=== PATIENT | female | born 1955 | race Caucasian/White ===

== ENCOUNTER 2017-09-03 12:08 | Day surgery (SDC) | payer BC ==
[2017-09-03] MEDS ORDERED: Lactated Ringers 1,000 ML IV SCH (12:30)
[2017-09-03] MEDS ORDERED: Sodium Chloride 0.9% 10 ML Syringe FLUSH PRN (12:30)
[2017-09-03] MEDS ORDERED: Midazolam 1 MG/ML 2 ML SDV ONE ×2 (13:35)
[2017-09-03] MEDS ORDERED: Propofol 200 MG/20 ML SDV ONE ×2 (13:35)
[2017-09-03] MEDS ORDERED: fentaNYL 100 MCG/2 ML SDV ONE ×2 (13:35)
[2017-09-03] MEDS ORDERED: Lidocaine 2% 5 ML SDV ONE (13:35)
--- NOTE | 2017-09-03 13:37 | PCM.PN ---
- General Info Date of Service: 09/03/17 - Review of Systems Systems Review Comment:: 61-year-old female referred by Tapan Vasquez for EGD and colonoscopy. She has a history of GERD and also a recent change in bowel habits. She is medically stable to proceed today with no recent changes in her health status. Her recent history and physical is reviewed. I have discussed the proposed upper and lower endoscopy with the patient. Risks such as but not limited to bleeding and GI injury discussed. She appears to understand and agrees to proceed. - Patient Data Vitals - Most Recent: Last Vital Signs Temp 98.1 F 09/03/17 12:38 Pulse 100 09/03/17 12:38 Resp 20 09/03/17 12:38 BP 112/58 L 09/03/17 12:38 Pulse Ox 100 09/03/17 12:38 Weight - Most Recent: 82.554 kg Med Orders - Current: Current Medications Lactated Ringer's (Ringers, Lactated) 1,000 mls @ 70 mls/hr IV ASDIRECTED SALVADOR Last Admin: 09/03/17 13:09 Dose: 70 mls/hr Sodium Chloride (Saline Flush) 10 ml FLUSH ASDIRECTED PRN PRN Reason: Keep Vein Open - Problem List Review Problem List Initiated/Reviewed/Updated: Yes - Assessment Assessment:: GERD Change in bowel habits - Plan Plan:: EGD and colonoscopy
--- NOTE | 2017-09-03 14:31 | PCM.OPNOTE ---
- General Post-Op/Procedure Note Date of Surgery/Procedure: 09/03/17 Operative Procedure(s): EGD with Biopsy and Colonoscopy Findings: Small Hiatal Hernia Mild reflux esophagitis at the GE Jct. Moderate Sigmoid Diverticulosis External hemorrhoids Pre Op Diagnosis: GERD. Change in Bowel Habits Post-Op Diagnosis: Reflux esophagitis. Hiatal Hernia. External Hemorrhoids. Diverticulosis Anesthesia Technique: [facility] – [place] Primary Surgeon: Chad Flores Pathology: Biopsies of Duodenum, Gastric antrum, and GE Jct Output, Urine Amount: 0 EBL in mLs: 3 Complications: None Condition: Good Free Text/Narrative:: Intake & Output 09/02/17 09/03/17 09/03/17 22:59 06:59 14:59 Intake Total 1000 Balance 1000
[2017-09-03 16:58] VITALS: BP 120/64
--- NOTE | 2017-09-03 19:08 | OR ---
Date of Procedure: 09/03/2017 PREOPERATIVE DIAGNOSES: Gastroesophageal reflux disease and change in bowel habits. POSTOPERATIVE DIAGNOSES: 1. Hiatal hernia. 2. Reflux esophagitis. 3. Sigmoid diverticulosis. 4. External hemorrhoids. OPERATION PERFORMED: EGD with biopsy and colonoscopy. INDICATIONS FOR SURGERY: This 61-year-old female has a longstanding history of GERD symptoms, which are slowly worsening. She also has been having a change in her bowel habits, and she is referred for EGD and colonoscopy. FINDINGS: On upper endoscopy, the patient has a small hiatal hernia with widening of the GE junction. There is a mild degree of irritation at the GE mucosal junction consistent with acid reflux, but this is confined to the area of the GE junction, and the remainder of the esophagus appears normal. Her stomach otherwise appears normal, and her duodenum does as well. On colonoscopy, the patient has a moderate degree of sigmoid diverticulosis with some angulation, and there is also moderate sized external hemorrhoids, but her colon otherwise appears normal. DESCRIPTION OF PROCEDURE: The patient was taken to the operating room. She was given intravenous sedation, and her throat was topically anesthetized. With the patient in the left lateral decubitus position and with the mouth gag in place, the esophagus was intubated with the Olympus gastroscope. This was carefully advanced down through the esophagus, stomach, and into the duodenum, where examination to the fourth portion was performed. After carefully examining the duodenum, random biopsies of the duodenum were taken because of her history of diarrhea. The scope was withdrawn back up into the stomach, where multiple biopsies of the gastric antrum were taken to rule out H. pylori. Full examination of the stomach including retroflexed examination of the fundus was carried out. The GE junction was then carefully examined, and biopsies were taken here as well. The esophagus was then re-examined as the scope was removed. Attention was then turned to colonoscopy. Digital rectal exam showed no rectal masses. The Olympus colonoscope was inserted into the rectum. Retroflexed examination of the rectal canal was performed. The scope was then carefully advanced through the entire length of the colon until the cecum was reached. Cecal acquisition was confirmed by noting the normal internal cecal anatomy including the appendiceal orifice and the ileocecal valve and also visualizing the light to transilluminate the abdominal wall in the right lower quadrant. After examining the cecum, the scope was slowly withdrawn sequentially re-examining the colonic segments until the entire colon and rectum had been fully examined. The scope was removed, and the patient was taken from the operating room in satisfactory condition. ESTIMATED BLOOD LOSS: 3 mL. COMPLICATIONS: None. PROGNOSIS: Good. ELLI Flores MD /[id number]
== END 2017-09-03 15:55 | disposition home or self-care (01) ==
LOC: LL.SDS 12:08
PROVIDERS: ATTEND Surgery
DX: K44.9 Diaphragmatic hernia without obstruction or gangrene (principal); K64.4 Residual hemorrhoidal skin tags; K57.30 Diverticulosis of large intestine without perforation or abscess without bleeding; B33.20 Viral carditis, unspecified; E78.5 Hyperlipidemia, unspecified; K21.9 Gastro-esophageal reflux disease without esophagitis; I25.2 Old myocardial infarction; I25.10 Atherosclerotic heart disease of native coronary artery without angina pectoris; E03.9 Hypothyroidism, unspecified; E66.9 Obesity, unspecified; Z88.8 Allergy status to other drugs, medicaments and biological substances; Z79.82 Long term (current) use of aspirin; Z79.899 Other long term (current) drug therapy; Z68.33 Body mass index [BMI] 33.0-33.9, adult; F17.210 Nicotine dependence, cigarettes, uncomplicated
CPT/HCPCS: 43239; 45378; J2250; J2704; J3010; J7120

== ENCOUNTER 2021-05-23 07:58 | Day surgery (SDC) | payer MEDICARE, BC ==
[~2021-05-23 07:58] MED LIST: Lactated Ringers 1,000 ML IV SCH; Sodium Chloride 0.9% 10 ML Syringe FLUSH PRN
[2021-05-23] MEDS ORDERED: Midazolam 1 MG/ML 2 ML SDV ONE ×2 (08:39→09:03)
[2021-05-23] MEDS ORDERED: Propofol 200 MG/20 ML SDV ONE ×2 (08:39→09:03)
[2021-05-23] MEDS ORDERED: Glycopyrrolate 0.2 MG/ML SDV ONE (09:03)
[2021-05-23] MEDS ORDERED: Lidocaine 2% 5 ML SDV ONE (09:03)
--- NOTE | 2021-05-23 09:07 | PCM.PN ---
- General Info Date of Service: 05/23/21 - Review of Systems Systems Review Comment:: 65-year-old female with history of GERD as well as change in bowel habits with diarrhea referred for EGD and colonoscopy. Patient's history and physical is reviewed and no significant changes are noted. I have discussed the proposed EGD and colonoscopy with the patient. Her questions were answered and she agrees to proceed. She understands and accepts risks. - Patient Data Vitals - Most Recent: Last Vital Signs Temp 98.3 F 05/23/21 08:30 Pulse 81 05/23/21 08:30 Resp 18 05/23/21 08:30 BP 126/50 L 05/23/21 08:30 Pulse Ox 96 05/23/21 08:30 Weight - Most Recent: 94.801 kg Med Orders - Current: Current Medications Lactated Ringer's (Ringers, Lactated) 1,000 mls @ 125 mls/hr IV ASDIRECTED SALVADOR Last Admin: 05/23/21 08:55 Dose: 125 mls/hr Documented by: Sodium Chloride (Sodium Chloride 0.9% 10 Ml Syringe) 10 ml FLUSH ASDIRECTED PRN PRN Reason: Keep Vein Open Discontinued Medications Midazolam HCl (Midazolam 1 Mg/Ml 2 Ml Sdv) Confirm Administered Dose 2 mg .ROUTE .STK-MED ONE Stop: 05/23/21 08:40 Propofol (Propofol 200 Mg/20 Ml Sdv) Confirm Administered Dose 400 mg .ROUTE .STK-MED ONE Stop: 05/23/21 08:40 Sepsis Event Note - Focused Exam Vital Signs: Vital Signs Temp Pulse Resp BP Pulse Ox 05/23/21 08:30 98.3 F 81 18 126/50 L 96 - Problem List Review Problem List Initiated/Reviewed/Updated: Yes - Assessment Assessment:: GERD Change in bowel habits - Plan Plan:: EGD and colonoscopy
--- NOTE | 2021-05-23 09:51 | PCM.OPNOTE ---
- General Post-Op/Procedure Note Date of Surgery/Procedure: 05/23/21 Operative Procedure(s): EGD with Biopsy and Colonoscopy with Polypectomy and Biopsy Findings: Small hiatal hernia but otherwise normal upper endoscopy Sessile transverse colon polyp and small cecal polyp Small to moderate sized external hemorrhoids Otherwise normal colon Pre Op Diagnosis: GERD. Change in bowel habits Post-Op Diagnosis: Hiatal hernia. Colon polyps. Hemorrhoids Anesthesia Technique: MAC Primary Surgeon: Chad Flores Pathology: Biopsies of duodenum, antrum, esophagus, and colon Colon polyps EBL in mLs: 3 Complications: None Condition: Good
[2021-05-23 10:27] VITALS: BP 131/69; PULSE 84
--- NOTE | 2021-05-23 11:26 | OR ---
Date of Procedure: 05/23/2021 PREOPERATIVE DIAGNOSES: Gastroesophageal reflux disease, change in bowel habits. POSTOPERATIVE DIAGNOSES: Hiatal hernia, colon polyps, external hemorrhoids. OPERATIONS PERFORMED: Esophagogastroduodenoscopy with biopsy and colonoscopy with biopsy and polypectomy. INDICATIONS FOR SURGERY: This 65-year-old female who has been having symptoms of epigastric pain and GERD. She also has noted a recent change in bowel pattern with some loose and irregular bowel movements. FINDINGS: On upper endoscopy, the patient has a small hiatal hernia with mild widening of the GE junction. The structures otherwise appear normal. On colonoscopy, the colon mucosa appears normal without visible signs of inflammation or irregularity. Two polyps were noted during the exam. A 1 cm sessile polyp in the transverse colon and a 5 mm sessile polyp in the cecum. The patient also has small to medium-sized external hemorrhoids. PROCEDURE IN DETAIL: The patient was taken to the operating room. She was given intravenous sedation, and her throat was topically anesthetized. With her in the left lateral decubitus position, the Olympus gastroscope was advanced through a mouth guard into the oral cavity. Under direct visualization, the scope was advanced through the oropharynx and down through the esophagus, stomach, and into the duodenum, where examination to the fourth portion was performed. The duodenum was carefully examined and found to appear normal. Random biopsies of the duodenum were taken because of the patient's history of loose stools. The scope was withdrawn back into the stomach where full examination including retroflexed examination of the fundus was carried out. The gastric mucosal lining appeared normal, but random biopsies of the antrum were taken to rule out H. pylori. The GE junction and esophagus were also carefully examined as the scope was withdrawn. Because of her symptoms of GERD, random biopsies of the distal esophagus were taken. After the exam had been completed, attention was turned to colonoscopy. Digital rectal exam was performed showing no rectal masses. The Olympus colonoscope was inserted into the rectum. Retroflexed examination of the rectal canal was performed. The scope was then carefully advanced under direct visualization through the entire length of the colon until the cecum was reached. Cecal acquisition was confirmed by noting the normal internal cecal anatomy including the ileocecal valve and the area of the appendiceal orifice. The light was also noted to transilluminate the abdominal wall in the right lower quadrant. During advancement of the scope, the above-described sessile polyp in the transverse colon was identified. This was removed with a cautery snare and retrieved into a polyp trap. The small cecal polyp was also removed when visualized, and this was carried out with the cold biopsy forceps. After examining the cecum, the scope was slowly withdrawn sequentially re-examining the colonic segments. During withdrawal of the scope, random biopsies of the right and left colon were taken because of her history of loose stools. After the exam had been completed and with no sign of any complication, the scope was removed, and the patient was taken from the operating room in satisfactory condition. ESTIMATED BLOOD LOSS: 3 mL. COMPLICATIONS: None. PROGNOSIS: Good. ELLI Flores MD /[id number]
== END 2021-05-23 11:18 | disposition home or self-care (01) ==
LOC: LL.SDS 07:58
PROVIDERS: ATTEND Surgery
DX: D12.3 Benign neoplasm of transverse colon (principal); D12.0 Benign neoplasm of cecum; K31.89 Other diseases of stomach and duodenum; K29.50 Unspecified chronic gastritis without bleeding; K64.4 Residual hemorrhoidal skin tags; I25.10 Atherosclerotic heart disease of native coronary artery without angina pectoris; I25.2 Old myocardial infarction; E78.5 Hyperlipidemia, unspecified; J44.9 Chronic obstructive pulmonary disease, unspecified; F41.1 Generalized anxiety disorder; E03.9 Hypothyroidism, unspecified; F41.8 Other specified anxiety disorders; K57.30 Diverticulosis of large intestine without perforation or abscess without bleeding; K21.9 Gastro-esophageal reflux disease without esophagitis
CPT/HCPCS: 00813; 88305; J2250; J2704; J3490; J7120

== ENCOUNTER 2022-03-23 12:39 | Observation (INO) | payer MEDICARE, BC ==
[2022-03-23] MEDS ORDERED: Aspirin 81 MG Tab.Chew PO ONE (12:43)
[2022-03-23] MEDS ORDERED: Nitroglycerin 0.4 MG Tab.SL SL ONE (12:44)
[2022-03-23 13:13] LABS: PTT,PARTIAL THROMBOPLSTIN TIME 23.3 SEC (23.6-29.8)
[2022-03-23 13:22] LABS: ANION GAP 8.1 meq/L (7-15)
[2022-03-23] MEDS ORDERED: GI Cocktail Oral Solution 30 ML PO ONE (13:40)
[2022-03-23] MEDS ORDERED: Ondansetron 4 MG Tab.DIS PO PRN (16:59)
[2022-03-23] MEDS ORDERED: Acetaminophen 325 MG Tab PO PRN (16:59)
[2022-03-23] MEDS ORDERED: Amoxicillin/Clavulanate K 875-125 MG Tab PO SCH (19:00)
[2022-03-23] MEDS ORDERED: Ezetimibe 10 MG Tab PO SCH (20:00)
[2022-03-23] MEDS ORDERED: Rosuvastatin 10 MG Tab PO SCH (20:00)
[2022-03-24] MEDS ORDERED: Levothyroxine 100 MCG Tab PO SCH (07:30)
[2022-03-24] MEDS ORDERED: Omeprazole 20 MG Cap.CR PO SCH (07:30)
[2022-03-24 07:42] VITALS: PULSE 58
[2022-03-24] MEDS ORDERED: ESTROGENS CONJUGATED 0.625 MG PO SCH (08:00)
[2022-03-24] MEDS ORDERED: Bisoprolol 5 MG Tab PO SCH (08:00)
[2022-03-24] MEDS ORDERED: Aspirin 81 MG Tab.EC PO SCH (08:00)
[2022-03-24] MEDS ORDERED: Clopidogrel 75 MG Tab PO SCH (08:00)
[2022-03-24] MEDS ORDERED: Multivitamin Tab PO SCH (08:00)
[2022-03-24 08:26] VITALS: BP 138/56
== END 2022-03-24 10:20 | disposition home or self-care (01) ==
LOC: LL.ED 12:39 → LL.MS 16:45
PROVIDERS: ADMIT Family Medicine; ATTEND Family Medicine
DX: R07.2 Precordial pain (principal); I25.10 Atherosclerotic heart disease of native coronary artery without angina pectoris; J44.9 Chronic obstructive pulmonary disease, unspecified; K21.9 Gastro-esophageal reflux disease without esophagitis; F41.9 Anxiety disorder, unspecified; E78.00 Pure hypercholesterolemia, unspecified; I25.2 Old myocardial infarction; E03.9 Hypothyroidism, unspecified; E66.9 Obesity, unspecified; Z79.890 Hormone replacement therapy; Z95.5 Presence of coronary angioplasty implant and graft; Z88.8 Allergy status to other drugs, medicaments and biological substances; Z88.5 Allergy status to narcotic agent; Z79.899 Other long term (current) drug therapy; Z79.82 Long term (current) use of aspirin; Z90.49 Acquired absence of other specified parts of digestive tract; Z98.890 Other specified postprocedural states
CPT/HCPCS: 36415; 80053; 84484; 85025; 85610; 85730; 93005; 93010; 99217; 99220; 99285-25; A9270-GY; G0378

== ENCOUNTER 2023-05-27 09:00 | Emergency (ER) | payer BC, MEDICARE ==
[2023-05-27] MEDS: Albuterol 0.083% 2.5 MG/3 ML Neb Soln NEB ONE (09:10)
[2023-05-27] MEDS: Furosemide 40 MG/4 ML VIAL IVPUSH ONE (09:15)
[2023-05-27] MEDS: methylPREDNISolone Sodium Succinate 125 MG/2 ML SDV IVPUSH ONE (09:15)
[2023-05-27 09:42] LABS: ALANINE AMINOTRANSFERASE,ALT 26 U/L (12-78); ALBUMIN 3.3 g/dL (3.4-5.0); ALKALINE PHOSPHATASE 78 IU/L (46-116); ANION GAP 13.5 meq/L (7-15); ASPARTATE AMNIOTRANSFERASE,AST 33 U/L (15-37); BILIRUBIN TOTAL 0.2 mg/dL (0.2-1.0); BLOOD UREA NITROGEN,BUN 16 mg/dL (7-18); CALCIUM 8.9 mg/dL (8.5-10.1); CARBON DIOXIDE,CO2 23.5 mmol/L (21.0-32.0); CHLORIDE,CL 107 mmol/L (98-107); CREATININE 1.12 mg/dL (0.51-1.17); ESTIMATED GFR 54 mL/min (>=60); GLUCOSE RANDOM 151 mg/dL (70-99); PRO B-TYPE NATRIUR PEPT,BNPPRO 367 pg/mL (0-125); SODIUM,NA 144 mmol/L (136-145)
[2023-05-27 09:43] LABS: PROTHROMBIN TIME 9.5 SEC (9.0-11.1)
[2023-05-27 09:45] LABS: BASOPHILS ABSOLUTE AUTO 0.01 K/uL (0.00-0.20); BASOPHILS PERCENT AUTO 0.2 % (0.0-2.0); EOSINOPHILS ABSOLUTE AUTO 0.04 K/uL (0.00-0.50); EOSINOPHILS PERCENT AUTO 0.6 % (0.0-5.0); HEMATOCRIT 45.4 % (34.0-46.0); HEMOGLOBIN 15.1 g/dL (11.7-15.5); LYMPHOCYTES ABSOLUTE AUTO 4.92 K/uL (0.50-3.50); LYMPHOCYTES PERCENT AUTO 77.5 % (10.0-50.0); MEAN CORPUSCULAR HEMOGLOBIN 31.1 pg (28.2-33.3); MEAN CORPUSCULAR HGB CONC 33.3 g/dL (31.7-36.0); MEAN CORPUSCULAR VOLUME 93.6 fL (84.0-98.0); MONOCYTES ABSOLUTE AUTO 0.28 K/uL (0.00-1.00); MONOCYTES PERCENT AUTO 4.4 % (2.0-14.0); NEUTROPHILS PERCENT AUTO 17.3 % (45.0-80.0); PLATELET COUNT,PLT 248 K/uL (150-350); RED BLOOD CELL COUNT 4.85 M/uL (3.77-5.09); RED CELL DISTRIBUTION WIDTH 14.7 % (11.2-14.1); WHITE BLOOD CELL COUNT,WBC 6.4 K/uL (4.0-10.2)
[2023-05-27 10:32] LABS: APPEARANCE,URINE CLEAR; BILIRUBIN,URINE NEGATIVE (NEGATIVE); COLOR,URINE YELLOW; GLUCOSE,URINE NEGATIVE (NEGATIVE); KETONES,URINE NEGATIVE (NEGATIVE); LEUKOCYTE ESTERASE,URINE NEGATIVE (NEGATIVE); NITRITE,URINE NEGATIVE (NEGATIVE); OCCULT BLOOD,URINE NEGATIVE (NEGATIVE); PH,URINE 5.5 (5.0-9.0); PROTEIN,URINE NEGATIVE (NEGATIVE); UROBILINOGEN,URINE 0.2 E.U./dL (0.2-1.0)
[2023-05-27] MEDS ORDERED: Sodium Chloride 0.9% 10 ML Syringe FLUSH PRN (10:33)
[2023-05-27] MEDS: EPINEPHrine 1 MG/ML SDV IM ONE (11:23)
[2023-05-27] MEDS: Sodium Chloride 0.9% 1,000 ML IV SCH ×2 (11:33)
[2023-05-27] MEDS: Norepinephrine Bit/D5W Premix 250 ML IV SCH (11:33)
[2023-05-27 15:33] VITALS: BP 129/58; PULSE 77
== END 2023-05-27 16:00 ==
LOC: SUPCPDRO 09:29 → LL.ED 09:29
DX: T78.2XXA Anaphylactic shock, unspecified, initial encounter (principal); I25.10 Atherosclerotic heart disease of native coronary artery without angina pectoris; I10 Essential (primary) hypertension; I25.2 Old myocardial infarction; J44.9 Chronic obstructive pulmonary disease, unspecified; K21.9 Gastro-esophageal reflux disease without esophagitis; E03.9 Hypothyroidism, unspecified; E66.9 Obesity, unspecified; Z68.41 Body mass index [BMI] 40.0-44.9, adult; Z88.5 Allergy status to narcotic agent; Z88.8 Allergy status to other drugs, medicaments and biological substances; Z79.899 Other long term (current) drug therapy; Z79.82 Long term (current) use of aspirin
CPT/HCPCS: 36415; 51702; 71045; 80053; 81003; 83880; 84484; 85025; 85610; 93005; 93010; 94640; 96365; 96372; 96375; 99284; 99285-25; J0171; J1940; J2930; J3490; J7030; J7050; J7613-GY

== ENCOUNTER 2024-06-30 10:02 | Day surgery (SDC) | payer MEDICARE ==
[~2024-06-30 10:02] MED LIST changes: -Lactated Ringers 1,000 ML IV SCH; +Midazolam 1 MG/ML 2 ML SDV ONE; +Propofol 200 MG/20 ML SDV ONE; -Sodium Chloride 0.9% 10 ML Syringe FLUSH PRN
[2024-06-30] MEDS: Lactated Ringers 1,000 ML IV SCH (10:40)
[2024-06-30] MEDS ORDERED: Sodium Chloride 0.9% 10 ML Syringe FLUSH PRN (11:00)
[2024-06-30 12:30] VITALS: BP 123/62; PULSE 75
== END 2024-06-30 12:41 | disposition home or self-care (01) ==
LOC: LL.SDS 10:02
PROVIDERS: ATTEND Surgery
DX: Z12.11 Encounter for screening for malignant neoplasm of colon (principal); D12.4 Benign neoplasm of descending colon; K63.5 Polyp of colon; K21.9 Gastro-esophageal reflux disease without esophagitis; Z86.0100 Personal history of colon polyps, unspecified; J44.9 Chronic obstructive pulmonary disease, unspecified; I10 Essential (primary) hypertension; E03.9 Hypothyroidism, unspecified; Z79.890 Hormone replacement therapy; Z79.82 Long term (current) use of aspirin; Z79.899 Other long term (current) drug therapy
CPT/HCPCS: 88305; J2250; J2704; J7120

== ENCOUNTER 2025-04-24 15:50 | Emergency (ER) | payer MEDICARE ==
[2025-04-24 16:16] LABS: BASOPHILS ABSOLUTE AUTO 0.04 K/uL (0.00-0.20); BASOPHILS PERCENT AUTO 0.4 % (0.0-2.0); EOSINOPHILS ABSOLUTE AUTO 0.17 K/uL (0.00-0.50); EOSINOPHILS PERCENT AUTO 1.7 % (0.0-5.0); IMMATURE GRAN ABSOLUTE AUTO 0.04 10^3/uL (0.00-0.04); IMMATURE GRAN PERCENT AUTO 0.4 % (0.0-0.4); LYMPHOCYTES ABSOLUTE AUTO 2.84 K/uL (0.50-3.50); LYMPHOCYTES PERCENT AUTO 28.5 % (10.0-50.0); MONOCYTES ABSOLUTE AUTO 0.63 K/uL (0.00-1.00); MONOCYTES PERCENT AUTO 6.3 % (2.0-14.0); NEUTROPHILS ABSOLUTE AUTO 6.24 K/uL (1.40-7.00); NEUTROPHILS PERCENT AUTO 62.7 % (45.0-80.0); PLATELET COUNT,PLT 244 K/uL (150-350); RED BLOOD CELL COUNT 4.36 M/uL (3.77-5.09); RED CELL DISTRIBUTION WIDTH 13.8 % (11.2-14.1); WHITE BLOOD CELL COUNT,WBC 10.0 K/uL (4.0-10.2)
[2025-04-24 16:40] LABS: ALANINE AMINOTRANSFERASE,ALT 139 U/L (12-78); ASPARTATE AMNIOTRANSFERASE,AST 129 U/L (15-37); BILIRUBIN TOTAL 0.5 mg/dL (0.2-1.0); BLOOD UREA NITROGEN,BUN 17 mg/dL (7-18); CARBON DIOXIDE,CO2 26.9 mmol/L (21.0-32.0); CHLORIDE,CL 104 mmol/L (98-107); CREATININE 1.25 mg/dL (0.51-1.17); GLUCOSE RANDOM 131 mg/dL (70-99); POTASSIUM,K 3.0 mmol/L (3.5-5.1); PROTEIN TOTAL,TP 7.2 g/dL (6.4-8.2); SODIUM,NA 140 mmol/L (136-145)
[2025-04-24] MEDS ORDERED: Sodium Chloride 0.9% 10 ML Syringe FLUSH PRN (16:45)
[2025-04-24 16:53] LABS: ESTIMATED GFR 47 mL/min (>=60)
[2025-04-24] MEDS: Potassium Bicarbonate/Cit Ac 20 MEQ Effervescent Tab PO ONE (17:48)
[2025-04-24] MEDS ORDERED: Potassium Bicarbonate/Cit Ac 20 MEQ Effervescent Tab PO ONE ×2 (18:15→19:00)
[2025-04-24] MEDS: Potassium Chloride 20 MEQ Tab.ER PO ONE (18:52)
[2025-04-24 19:04] VITALS: PULSE 103
[2025-04-24 19:16] VITALS: BP 139/57
== END 2025-04-24 19:30 | disposition home or self-care (01) ==
LOC: LL.ED 15:50
DX: R55 Syncope and collapse (principal); E87.6 Hypokalemia; E78.00 Pure hypercholesterolemia, unspecified; I10 Essential (primary) hypertension; E03.9 Hypothyroidism, unspecified; Z88.5 Allergy status to narcotic agent; Z88.8 Allergy status to other drugs, medicaments and biological substances; Z79.82 Long term (current) use of aspirin; Z79.899 Other long term (current) drug therapy; Z79.890 Hormone replacement therapy; Z90.49 Acquired absence of other specified parts of digestive tract; Z90.710 Acquired absence of both cervix and uterus
CPT/HCPCS: 36415; 80053; 84484; 85025; 93005; 96360; 99284; A9270; J7040; 93010